=== PATIENT | female | born 1970 | race Two or more races ===

== ENCOUNTER 2018-12-11 16:19 | Emergency (ER) | payer OTHER ==
[~2018-12-11] VITALS: Ht 160 cm; Wt 68.0 kg
[2018-12-11] MEDS ORDERED: NKM (16:46)
[2018-12-11] MEDS ORDERED: Acetaminophen 500mg (ES) tab ORAL ONE (17:30)
--- NOTE | 2018-12-11 17:36 | Emergency Room Report ---
History of Present Illness General Chief Complaint: Head Injury Source: Patient Present Illness HPI 47-year-old female presents to the emergency department complaining of 6 out of 10 severity pain to the top of her head as well as pain to the right posterior shoulder and upper back area x2 days. Patient reports that she had acute onset of her head pain after a large plastic container fell on her head at work 2 days ago. Patient states that she then later began to notice upper right-sided back pain that was progressive today. States forward flexion exacerbates her right-sided upper back pain. Patient states palpation exacerbates the pain that she is having on the top of her head. She denies loss of consciousness she states she fell onto the ground when the box hit her head. Patient denies slurred speech, impairment of memory, nausea, vomiting, dizziness, visual changes, weakness or paresthesias. Denies taking blood thinning medications. Denies open wounds or bleeding. She reports progressive SHEEHAN. Denies neck pain or stiffness. Allergies: Coded Allergies: No Known Allergies (Unverified , 12/11/18) Patient History Past Medical History: see triage record Past Surgical History: none Pertinent Family History: none Last Menstrual Period: 2 months ago Reviewed Nursing Documentation: PMH: Agreed; PSxH: Agreed Nursing Documentation-PMH Past Medical History: No Stated History Review of Systems All Other Systems: negative except mentioned in HPI Physical Exam Vital Signs Date Time Temp Pulse Resp B/P (MAP) Pulse Ox O2 Delivery O2 Flow Rate FiO2 12/11/18 16:42 98.1 62 16 140/77 (98) 96 Room Air Sp02 EP Interpretation: reviewed, normal General Appearance: no apparent distress, alert, GCS 15, non-toxic Head: normocephalic, other - TTP to the top of the scalp, no obvious swelling or hematoma. no open wounds. Eyes: bilateral eye normal inspection, bilateral eye PERRL, bilateral eye EOMI ENT: hearing grossly normal, normal voice Neck: full range of motion, no bony tend Respiratory: chest non-tender, lungs clear, normal breath sounds, no respiratory distress, no accessory muscle use, no wheezing, speaking full sentences Cardiovascular #1: regular rate, rhythm Musculoskeletal: gait/station normal, normal range of motion, tender - TTP to the right upper back , trapezius and posterior shoulder area, no specific localized bony ttp, no midline spinal tenderness or obvious step-offs. Neurologic: alert, oriented x3, responsive, motor strength/tone normal, sensory intact, normal gait, speech normal, other - no nystagmus, no facial droop, negative rhomberg., grossly normal Psychiatric: judgement/insight normal Skin: normal color, no rash, warm/dry, well hydrated Medical Decision Making PA Attestation Dr. Patino is my supervising Physician whom patient management has been discussed with. Diagnostic Impression: Primary Impression: Contusion of scalp Qualified Codes: S00.03XA - Contusion of scalp, initial encounter Additional Impressions: Acute uncomplicated head injury without loss of consciousness Qualified Codes: S09.90XA - Unspecified injury of head, initial encounter Muscle strain ER Course 47-year-old female presents to the emergency department complaining of 6 out of 10 severity pain to the top of her head as well as pain to the right posterior shoulder and upper back area x2 days. Patient reports that she had acute onset of her head pain after a large plastic container fell on her head at work 2 days ago. Patient states that she then later began to notice upper right-sided back pain that was progressive today. States forward flexion exacerbates her right-sided upper back pain. Patient states palpation exacerbates the pain that she is having on the top of her head. She denies loss of consciousness she states she fell onto the ground when the box hit her head. Patient denies slurred speech, impairment of memory, nausea, vomiting, dizziness, visual changes, weakness or paresthesias. Denies taking blood thinning medications. Denies open wounds or bleeding. She reports progressive SHEEHAN. Denies neck pain or stiffness. Ddx considered but are not limited to Fracture, dislocation, contusion, concussion Sprain/Strain/Spasm, hematoma, concussion, acute head injury, subdural hematoma, acute cranial bleed just to name a few. Vital signs: are WNL, pt. is afebrile H&PE are most consistent with contusion, no evidence of focal neurological deficit, no loss of consciousness. Generalized soft tissue/muscular ttp,No localized bony ttp of the right upper back. ORDERS: none required at this time. PE and HPI do not indicate CT at this time. Fracture of very low suspicion. Back progressive delayed onset most consistent with muscular injury. ED INTERVENTIONS: -Lidoderm TP -Tylenol PO -D/w Pt. reasoning for not doing Head CT, also discussed red flag symptoms to keep an eye out for that would indicate prompt return to the ED. - Pt. verbalizes her understanding and agreement with proposed treatment plan. DISCHARGE: At this time pt. is stable for d/c to home. Will provide printed patient care instructions, and any necessary prescriptions. Care plan and follow up instructions have been discussed with the patient prior to discharge. Last Vital Signs Date Time Temp Pulse Resp B/P (MAP) Pulse Ox O2 Delivery O2 Flow Rate FiO2 12/11/18 16:42 98.1 62 16 140/77 (98) 96 Room Air Status: improved Disposition: HOME, SELF-CARE Condition: Stable Scripts Lidocaine (Lidoderm) 1 Each Adh..patch 1 PATCH TOPIC DAILY, #30 PATCH 0 Refills Patch(es) may remain in place for up to 12 hours in any 24-hour period. Prov: Moraima Camarillo 12/11/18 Acetaminophen* (TYLENOL EXTRA STRENGTH*) 500 Mg Tablet 500 MG ORAL Q6H, #30 TAB 0 Refills Prov: Moraima Camarillo 12/11/18 Methocarbamol* (ROBAXIN-750*) 750 Mg Tablet 750 MG PO QID, #28 TAB 0 Refills Prov: Moraima Camarillo 12/11/18 Departure Forms: Return to Work Return to Work Date: Dec 15, 2018 Work Restrictions: None Return to Full Activity: Dec 15, 2018 Patient Instructions: Contusion, [id number], Head Injury, Adult, [id number] Additional Instructions: Take medications as directed. Follow up with a Primary Care Provider in 3-5 days, even if your symptoms have resolved. --Please review list of primary care clinics, if you do not already have a primary care provider Return sooner to ED if new symptoms occur, or current symptoms become worse. Do not drink alcohol, drive, or operate heavy machinery while taking Robaxin ( Muscle Relaxers) as this may cause drowsiness. - Please note that this Emergency Department Report was dictated using [employer] cigar maker technology software, occasionally this can lead to erroneous entry secondary to interpretation by the dictation equipment. Moraima Camarillo Dec 11, 2018 17:36
[2018-12-11] MEDS ORDERED: ROBAXIN-750750 MG PO (17:37)
[2018-12-11] MEDS ORDERED: LIDODERM700 M1 TOPIC (17:37)
[2018-12-11] MEDS ORDERED: TYLENOL EXTRA500 MG ORAL (17:37)
[2018-12-11 17:50] VITALS: BP 140/77
--- NOTE | 2018-12-11 19:10 | NUR ---
ED Nurse Note: nayelid gretelal done pt medicated given workers comp papers. ED Nurse Note: Pt cleared by health care Provider for discharge. DC instructions/prescription was given and explained to pt and verbalized understanding of teachings. All medical deviecs such as ID band removed. Pt is AAO x4, ambulatory and left with all personal belongings.
== END 2018-12-11 17:15 | disposition home or self-care (01) ==
LOC: EMR 17:15
DX: S00.03XA Contusion of scalp, initial encounter (principal); S09.90XA Unspecified injury of head, initial encounter; T14.8XXA Other injury of unspecified body region, initial encounter; W22.8XXA Striking against or struck by other objects, initial encounter; Y93.9 Activity, unspecified; Y92.9 Unspecified place or not applicable
CPT/HCPCS: 99282